=== PATIENT | male | born 1935 | race Caucasian/White ===

== ENCOUNTER 2023-06-06 19:54 | Inpatient (IN) | payer OTHER ==
[2023-06-06 21:25] LABS: BASO % 0.5 % (0-2.0); EOS % 0.2 % (0-4.5); HEMATOCRIT 43.6 % (35.4-49); HEMOGLOBIN 14.7 GM/dL (11.7-16.9); LYMPH % 7.2 % (8-40); MCHC 33.7 g/dl (32.0-35.9); MONO % 8.6 % (3.8-10.2); NEUT % 83.5 % (42.8-82.8); PLATELET COUNT 119 10^3/uL (134-434); RBC 4.74 M/mm3 (4.00-5.60); RDW 14.6 % (11.9-15.9)
[2023-06-06] MEDS ORDERED: guaiFENesin 200 MG/10 ML 10 ML UNIT-DOSE CUPS PO ONE (21:34)
[2023-06-06 21:39] LABS: POTASSIUM 3.9 mmol/L (3.5-5.1)
[2023-06-06] MEDS ORDERED: guaiFENesin 200 MG/10 ML 10 ML UNIT-DOSE CUPS ONE (21:46)
[2023-06-06 21:47] LABS: ALBUMIN 3.7 g/dl (3.4-5.0); BLOOD UREA NITROGEN 18.5 mg/dL (7-18); CALCIUM 9.3 mg/dL (8.5-10.1)
[2023-06-06 21:48] LABS: BILIRUBIN,TOTAL 1.1 mg/dL (0.2-1)
[2023-06-06 21:49] LABS: CREATININE 1.2 mg/dL (0.55-1.3)
[2023-06-06 21:50] LABS: TOT PROT 6.9 g/dl (6.4-8.2)
[2023-06-06] MEDS ORDERED: D5-1/2NS+10 MEQ KCL - 10 MEQ/1,000 ML INFUS.BAG IV SCH (22:00)
[2023-06-06] MEDS: guaiFENesin 600 MG TABLET.ER (FP) PO SCH (22:10)
[2023-06-06] MEDS ORDERED: NITROGLYCERIN SUBLINGUAL 1/150 0.4 MG TAB SL PRN (22:14)
[2023-06-06] MEDS ORDERED: HEPARIN NA (PORCINE) 5,000 UNITS/ML 1ML VIAL SQ SCH (22:15)
[2023-06-06] MEDS ORDERED: RIVAROXABAN 20 MG TABLET PO ONE (22:16)
[2023-06-06] MEDS ORDERED: ALBUTEROL SO4 2.5/IPRATROPIUM 0.5 INH SOL 3 ML VIAL.NEB. NEB ONE (22:58)
[2023-06-06] MEDS ORDERED: OSELTAMIVIR PHOSPHATE 75 MG CAPSULE ONE (22:59)
[2023-06-06] MEDS: ALBUTEROL SO4 2.5/IPRATROPIUM 0.5 INH SOL 3 ML VIAL.NEB. NEB PRN (23:03)
[2023-06-06] MEDS: OSELTAMIVIR PHOSPHATE 75 MG CAPSULE PO SCH (23:03)
[2023-06-06] MEDS ORDERED: ACETAMINOPHEN 325 MG TABLET (FP) ONE (23:28)
[2023-06-06] MEDS: ROSUVASTATIN CA 10 MG TABLET PO SCH (23:38)
[2023-06-06] MEDS: ACETAMINOPHEN 325 MG TABLET (FP) PO PRN (23:39)
[2023-06-07 00:20] LABS: PH,URINE 5.5 (5.0-8.0); URINE APPEARANCE CLEAR; URINE BILIRUBIN NEGATIVE (NEGATIVE); URINE COLOR YELLOW; URINE GLUCOSE (UA) NEGATIVE (NEGATIVE); URINE KETONE TRACE (NEGATIVE); URINE LEUK ESTERASE NEGATIVE (NEGATIVE); URINE NITRITE NEGATIVE (NEGATIVE); URINE PROTEIN TRACE (NEGATIVE)
[2023-06-07] MEDS ORDERED: ALBUTEROL SO4 2.5/IPRATROPIUM 0.5 INH SOL 3 ML VIAL.NEB. NEB ONE (03:48)
[2023-06-07] MEDS: ALBUTEROL SO4 2.5/IPRATROPIUM 0.5 INH SOL 3 ML VIAL.NEB. NEB PRN (03:54)
[2023-06-07] MEDS: D5-1/2NS+10 MEQ KCL - 10 MEQ/1,000 ML INFUS.BAG IV SCH ×2 (06:18→23:59)
[2023-06-07] MEDS ORDERED: MULTIVITAMINS (DAILY MVI) TABLET (FP) ONE (09:08)
[2023-06-07] MEDS: CHOLECALCIFEROL (VIT D3) 5000 UNITS (125 MCG) CAP PO SCH (09:23)
[2023-06-07] MEDS: LISINOPRIL 10 MG TABLET PO SCH (09:23)
[2023-06-07] MEDS: ASCORBIC ACID 500 MG TABLET (FP) PO SCH (09:23)
[2023-06-07] MEDS: ASPIRIN COATED 81 MG TABLET.EC PO SCH (09:23)
[2023-06-07] MEDS: PANTOPRAZOLE 40 MG TABLET PO SCH (09:23)
[2023-06-07] MEDS: OSELTAMIVIR PHOSPHATE 75 MG CAPSULE PO SCH ×2 (09:23→21:59)
[2023-06-07] MEDS: ZINC SULFATE 220 MG CAPSULE (FP) PO SCH (09:23)
[2023-06-07] MEDS: ATENOLOL 50 MG TABLET (FP) PO SCH (09:23)
[2023-06-07] MEDS: MULTIVITAMINS (DAILY MVI) TABLET (FP) PO SCH (09:23)
[2023-06-07] MEDS: guaiFENesin 600 MG TABLET.ER (FP) PO SCH ×2 (09:23→21:59)
[2023-06-07] MEDS: RIVAROXABAN 20 MG TABLET PO SCH (18:28)
[2023-06-07 18:39] LABS: BASO % 0.2 % (0-2.0); EOS % 0.3 % (0-4.5); HEMATOCRIT 42.4 % (35.4-49); LYMPH % 12.1 % (8-40); MCH 31.1 pg (25.7-33.7); MCHC 33.1 g/dl (32.0-35.9); MEAN CELL VOLUME 93.9 fl (80-96); MEAN PLT VOLUME 9.2 fl (7.5-11.1); MONO % 8.9 % (3.8-10.2); NEUT % 78.5 % (42.8-82.8); PLATELET COUNT 102 10^3/uL (134-434); RBC 4.52 M/mm3 (4.00-5.60); WHITE BLOOD COUNT 7.4 K/mm3 (4.0-10.0)
[2023-06-07 18:52] LABS: POTASSIUM 4.4 mmol/L (3.5-5.1)
[2023-06-07 18:55] LABS: CALCIUM 8.5 mg/dL (8.5-10.1)
[2023-06-07 18:56] LABS: BLOOD UREA NITROGEN 14.4 mg/dL (7-18)
[2023-06-07 18:59] LABS: CREATININE 0.9 mg/dL (0.55-1.3)
[2023-06-07] MEDS: ROSUVASTATIN CA 10 MG TABLET PO SCH (21:59)
[2023-06-07] MEDS: ACETAMINOPHEN 325 MG TABLET (FP) PO PRN (23:51)
[2023-06-08 04:34] VITALS: BMI 43.4
[2023-06-08 10:18] LABS: BASO % 0.3 % (0-2.0); EOS % 1.5 % (0-4.5); HEMATOCRIT 43.5 % (35.4-49); HEMOGLOBIN 14.7 GM/dL (11.7-16.9); MCH 31.6 pg (25.7-33.7); MCHC 33.8 g/dl (32.0-35.9); MEAN CELL VOLUME 93.5 fl (80-96); MEAN PLT VOLUME 9.2 fl (7.5-11.1); MONO % 7.3 % (3.8-10.2); NEUT % 76.9 % (42.8-82.8); PLATELET COUNT 92 10^3/uL (134-434); RBC 4.65 M/mm3 (4.00-5.60); WHITE BLOOD COUNT 6.4 K/mm3 (4.0-10.0)
[2023-06-08 10:25] LABS: POTASSIUM 3.9 mmol/L (3.5-5.1)
[2023-06-08 10:31] LABS: CALCIUM 8.9 mg/dL (8.5-10.1)
[2023-06-08 10:35] LABS: CREATININE 0.8 mg/dL (0.55-1.3)
[2023-06-08 11:07] LABS: BLOOD UREA NITROGEN 17.4 mg/dL (7-18)
[2023-06-08] MEDS: D5-1/2NS+10 MEQ KCL - 10 MEQ/1,000 ML INFUS.BAG IV SCH (11:37)
[2023-06-08] MEDS: ATENOLOL 50 MG TABLET (FP) PO SCH (11:39)
[2023-06-08] MEDS: PANTOPRAZOLE 40 MG TABLET PO SCH (11:39)
[2023-06-08] MEDS: MULTIVITAMINS (DAILY MVI) TABLET (FP) PO SCH (11:39)
[2023-06-08] MEDS: LISINOPRIL 10 MG TABLET PO SCH (11:39)
[2023-06-08] MEDS: ZINC SULFATE 220 MG CAPSULE (FP) PO SCH (11:39)
[2023-06-08] MEDS: guaiFENesin 600 MG TABLET.ER (FP) PO SCH ×2 (11:39→21:15)
[2023-06-08] MEDS: OSELTAMIVIR PHOSPHATE 75 MG CAPSULE PO SCH ×2 (11:39→21:15)
[2023-06-08] MEDS: ASPIRIN COATED 81 MG TABLET.EC PO SCH (11:39)
[2023-06-08] MEDS: ASCORBIC ACID 500 MG TABLET (FP) PO SCH (11:40)
[2023-06-08] MEDS: CHOLECALCIFEROL (VIT D3) 5000 UNITS (125 MCG) CAP PO SCH (11:40)
[2023-06-08] MEDS: RIVAROXABAN 20 MG TABLET PO SCH (18:12)
[2023-06-08 20:34] LABS: N-TERMINAL BNP 684.3 pg/ml (5-450)
[2023-06-08] MEDS: ROSUVASTATIN CA 10 MG TABLET PO SCH (21:15)
[2023-06-09 09:45] LABS: BASO % 0.3 % (0-2.0); EOS % 2.1 % (0-4.5); HEMATOCRIT 41.2 % (35.4-49); HEMOGLOBIN 14.3 GM/dL (11.7-16.9); LYMPH % 16.3 % (8-40); MCH 31.7 pg (25.7-33.7); MCHC 34.7 g/dl (32.0-35.9); MEAN CELL VOLUME 91.4 fl (80-96); MEAN PLT VOLUME 9.2 fl (7.5-11.1); MONO % 6.2 % (3.8-10.2); NEUT % 75.1 % (42.8-82.8); PLATELET COUNT 109 10^3/uL (134-434); RBC 4.51 M/mm3 (4.00-5.60); RDW 14.9 % (11.9-15.9); WHITE BLOOD COUNT 5.7 K/mm3 (4.0-10.0)
[2023-06-09 10:07] LABS: CHLORIDE 108 mmol/L (98-107); POTASSIUM 3.9 mmol/L (3.5-5.1); SODIUM 142 mmol/L (136-145)
[2023-06-09] MEDS: PANTOPRAZOLE 40 MG TABLET PO SCH (10:08)
[2023-06-09] MEDS: ZINC SULFATE 220 MG CAPSULE (FP) PO SCH (10:08)
[2023-06-09] MEDS: ATENOLOL 50 MG TABLET (FP) PO SCH (10:08)
[2023-06-09] MEDS: LISINOPRIL 10 MG TABLET PO SCH (10:08)
[2023-06-09] MEDS: guaiFENesin 600 MG TABLET.ER (FP) PO SCH ×2 (10:08→21:48)
[2023-06-09] MEDS: ASPIRIN COATED 81 MG TABLET.EC PO SCH (10:08)
[2023-06-09] MEDS: OSELTAMIVIR PHOSPHATE 75 MG CAPSULE PO SCH ×2 (10:08→21:48)
[2023-06-09 10:09] LABS: CALCIUM 8.8 mg/dL (8.5-10.1)
[2023-06-09] MEDS: MULTIVITAMINS (DAILY MVI) TABLET (FP) PO SCH (10:09)
[2023-06-09] MEDS: CHOLECALCIFEROL (VIT D3) 5000 UNITS (125 MCG) CAP PO SCH (10:09)
[2023-06-09] MEDS: D5-1/2NS+10 MEQ KCL - 10 MEQ/1,000 ML INFUS.BAG IV SCH (10:09)
[2023-06-09] MEDS: ASCORBIC ACID 500 MG TABLET (FP) PO SCH (10:09)
[2023-06-09 10:10] LABS: ANION GAP 7 mmol/L (4-13); BLOOD UREA NITROGEN 19.8 mg/dL (7-18); CO2 27 mmol/L (21-32); GLUCOSE,RANDOM 112 mg/dL (74-106)
[2023-06-09 10:13] LABS: CREATININE 0.8 mg/dL (0.55-1.3)
[2023-06-09] MEDS ORDERED: ALBUTEROL SO4 2.5/IPRATROPIUM 0.5 INH SOL 3 ML VIAL.NEB. NEB ONE (11:45)
[2023-06-09] MEDS ORDERED: guaiFENesin 600 MG TABLET.ER (FP) PO SCH (11:45)
[2023-06-09] MEDS: RIVAROXABAN 20 MG TABLET PO SCH (17:13)
[2023-06-09] MEDS: ROSUVASTATIN CA 10 MG TABLET PO SCH (21:48)
[2023-06-10] MEDS: D5-1/2NS+10 MEQ KCL - 10 MEQ/1,000 ML INFUS.BAG IV SCH ×2 (06:52→23:26)
[2023-06-10] MEDS: ASPIRIN COATED 81 MG TABLET.EC PO SCH (09:53)
[2023-06-10] MEDS: ZINC SULFATE 220 MG CAPSULE (FP) PO SCH (09:53)
[2023-06-10] MEDS: MULTIVITAMINS (DAILY MVI) TABLET (FP) PO SCH (09:53)
[2023-06-10] MEDS: guaiFENesin 600 MG TABLET.ER (FP) PO SCH ×2 (09:54→21:38)
[2023-06-10] MEDS: ACETAMINOPHEN 325 MG TABLET (FP) PO PRN ×2 (09:54→18:21)
[2023-06-10] MEDS: OSELTAMIVIR PHOSPHATE 75 MG CAPSULE PO SCH ×2 (09:54→21:38)
[2023-06-10] MEDS: CHOLECALCIFEROL (VIT D3) 5000 UNITS (125 MCG) CAP PO SCH (09:55)
[2023-06-10] MEDS: LISINOPRIL 10 MG TABLET PO SCH (09:55)
[2023-06-10] MEDS: ASCORBIC ACID 500 MG TABLET (FP) PO SCH (09:55)
[2023-06-10] MEDS: ATENOLOL 50 MG TABLET (FP) PO SCH (09:55)
[2023-06-10] MEDS: PANTOPRAZOLE 40 MG TABLET PO SCH (09:55)
[2023-06-10] MEDS: RIVAROXABAN 20 MG TABLET PO SCH (18:17)
[2023-06-10] MEDS: ALBUTEROL SO4 2.5/IPRATROPIUM 0.5 INH SOL 3 ML VIAL.NEB. NEB PRN (18:41)
[2023-06-10] MEDS: ROSUVASTATIN CA 10 MG TABLET PO SCH (21:38)
[2023-06-11] MEDS: ALBUTEROL SO4 2.5/IPRATROPIUM 0.5 INH SOL 3 ML VIAL.NEB. NEB PRN (07:45)
[2023-06-11] MEDS: CHOLECALCIFEROL (VIT D3) 5000 UNITS (125 MCG) CAP PO SCH (10:18)
[2023-06-11] MEDS: D5-1/2NS+10 MEQ KCL - 10 MEQ/1,000 ML INFUS.BAG IV SCH (10:18)
[2023-06-11] MEDS: ZINC SULFATE 220 MG CAPSULE (FP) PO SCH (10:18)
[2023-06-11] MEDS: ATENOLOL 50 MG TABLET (FP) PO SCH (10:19)
[2023-06-11] MEDS: MULTIVITAMINS (DAILY MVI) TABLET (FP) PO SCH (10:19)
[2023-06-11] MEDS: LISINOPRIL 10 MG TABLET PO SCH (10:19)
[2023-06-11] MEDS: ACETAMINOPHEN 325 MG TABLET (FP) PO PRN (10:19)
[2023-06-11] MEDS: guaiFENesin 600 MG TABLET.ER (FP) PO SCH ×2 (10:19→21:26)
[2023-06-11] MEDS: OSELTAMIVIR PHOSPHATE 75 MG CAPSULE PO SCH ×2 (10:19→21:26)
[2023-06-11] MEDS: ASCORBIC ACID 500 MG TABLET (FP) PO SCH (10:19)
[2023-06-11] MEDS: PANTOPRAZOLE 40 MG TABLET PO SCH (10:20)
[2023-06-11] MEDS: ASPIRIN COATED 81 MG TABLET.EC PO SCH (10:20)
[2023-06-11] MEDS: RIVAROXABAN 20 MG TABLET PO SCH (17:22)
[2023-06-11] MEDS: ROSUVASTATIN CA 10 MG TABLET PO SCH (21:26)
[2023-06-12] MEDS: OSELTAMIVIR PHOSPHATE 75 MG CAPSULE PO SCH ×2 (12:05→21:40)
[2023-06-12] MEDS: ASPIRIN COATED 81 MG TABLET.EC PO SCH (12:05)
[2023-06-12] MEDS: ATENOLOL 50 MG TABLET (FP) PO SCH (12:05)
[2023-06-12] MEDS: PANTOPRAZOLE 40 MG TABLET PO SCH (12:05)
[2023-06-12] MEDS: guaiFENesin 600 MG TABLET.ER (FP) PO SCH ×2 (12:05→21:40)
[2023-06-12] MEDS: LISINOPRIL 10 MG TABLET PO SCH (12:06)
[2023-06-12] MEDS: RIVAROXABAN 20 MG TABLET PO SCH (18:38)
[2023-06-12] MEDS: ROSUVASTATIN CA 10 MG TABLET PO SCH (21:40)
[2023-06-13] MEDS: guaiFENesin 600 MG TABLET.ER (FP) PO SCH ×2 (09:56→21:59)
[2023-06-13] MEDS: ASPIRIN COATED 81 MG TABLET.EC PO SCH (09:57)
[2023-06-13] MEDS: PANTOPRAZOLE 40 MG TABLET PO SCH (09:57)
[2023-06-13] MEDS: ATENOLOL 50 MG TABLET (FP) PO SCH (09:57)
[2023-06-13] MEDS: LISINOPRIL 10 MG TABLET PO SCH (09:57)
[2023-06-13] MEDS: RIVAROXABAN 20 MG TABLET PO SCH (18:12)
[2023-06-13] MEDS: ROSUVASTATIN CA 10 MG TABLET PO SCH (21:59)
[2023-06-14 08:59] LABS: BASO % 0.4 % (0-2.0); EOS % 1.3 % (0-4.5); HEMATOCRIT 38.7 % (35.4-49); HEMOGLOBIN 13.2 GM/dL (11.7-16.9); MCH 31.2 pg (25.7-33.7); MCHC 34.3 g/dl (32.0-35.9); MEAN CELL VOLUME 90.9 fl (80-96); MEAN PLT VOLUME 9.7 fl (7.5-11.1); MONO % 8.7 % (3.8-10.2); NEUT % 75.6 % (42.8-82.8); PLATELET COUNT 153 10^3/uL (134-434); RBC 4.25 M/mm3 (4.00-5.60); RDW 14.5 % (11.9-15.9); WHITE BLOOD COUNT 6.5 K/mm3 (4.0-10.0)
[2023-06-14 09:43] LABS: BLOOD UREA NITROGEN 15.4 mg/dL (7-18)
[2023-06-14 09:46] LABS: CREATININE 0.9 mg/dL (0.55-1.3)
[2023-06-14] MEDS: ATENOLOL 50 MG TABLET (FP) PO SCH (10:22)
[2023-06-14] MEDS: guaiFENesin 600 MG TABLET.ER (FP) PO SCH ×2 (10:22→21:39)
[2023-06-14] MEDS: LISINOPRIL 10 MG TABLET PO SCH (10:22)
[2023-06-14] MEDS: PANTOPRAZOLE 40 MG TABLET PO SCH (10:22)
[2023-06-14] MEDS: ASPIRIN COATED 81 MG TABLET.EC PO SCH (10:22)
[2023-06-14] MEDS: RIVAROXABAN 20 MG TABLET PO SCH (18:11)
[2023-06-14] MEDS: ROSUVASTATIN CA 10 MG TABLET PO SCH (21:39)
[2023-06-15] MEDS: ASPIRIN COATED 81 MG TABLET.EC PO SCH (10:07)
[2023-06-15] MEDS: guaiFENesin 600 MG TABLET.ER (FP) PO SCH ×2 (10:07→21:30)
[2023-06-15] MEDS: ACETAMINOPHEN 325 MG TABLET (FP) PO PRN (10:07)
[2023-06-15] MEDS: LISINOPRIL 10 MG TABLET PO SCH (10:07)
[2023-06-15] MEDS: ATENOLOL 50 MG TABLET (FP) PO SCH (10:07)
[2023-06-15] MEDS: PANTOPRAZOLE 40 MG TABLET PO SCH (10:07)
[2023-06-15] MEDS ORDERED: ALBUTEROL SO4 2.5/IPRATROPIUM 0.5 INH SOL 3 ML VIAL.NEB. NEB ONE (16:08)
[2023-06-15] MEDS: RIVAROXABAN 20 MG TABLET PO SCH (17:24)
[2023-06-15] MEDS: ROSUVASTATIN CA 10 MG TABLET PO SCH (21:30)
[2023-06-15 22:32] VITALS: TEMP 97.9
[2023-06-16] MEDS: PANTOPRAZOLE 40 MG TABLET PO SCH (10:03)
[2023-06-16] MEDS: ASPIRIN COATED 81 MG TABLET.EC PO SCH (10:03)
[2023-06-16] MEDS: guaiFENesin 600 MG TABLET.ER (FP) PO SCH (10:03)
[2023-06-16] MEDS: LISINOPRIL 10 MG TABLET PO SCH (10:03)
[2023-06-16] MEDS: ATENOLOL 50 MG TABLET (FP) PO SCH (10:03)
[2023-06-16 14:00] VITALS: BP 100/59; PULSE 95; RESP 19
== END 2023-06-16 15:00 | DRG 194 ==
LOC: JER 19:54 → JERBED 22:18 → OBSVTOIN 06-07 10:43 → J6S 06-07 23:47
PROVIDERS: ADMIT Internal Medicine; ATTEND Internal Medicine
DX: J10.1 Influenza due to other identified influenza virus with other respiratory manifestations (principal); I48.20 Chronic atrial fibrillation, unspecified; R26.2 Difficulty in walking, not elsewhere classified; I10 Essential (primary) hypertension; M62.81 Muscle weakness (generalized); I48.91 Unspecified atrial fibrillation; D69.6 Thrombocytopenia, unspecified; E78.5 Hyperlipidemia, unspecified; I25.10 Atherosclerotic heart disease of native coronary artery without angina pectoris; J44.9 Chronic obstructive pulmonary disease, unspecified; E86.0 Dehydration; M06.09 Rheumatoid arthritis without rheumatoid factor, multiple sites; R32 Unspecified urinary incontinence; N40.0 Benign prostatic hyperplasia without lower urinary tract symptoms; Z95.5 Presence of coronary angioplasty implant and graft
CPT/HCPCS: 0241U-QW; 36415; 71045-TC-FY; 80048; 80053; 80061; 81003; 82550; 83036; 83880; 84443; 84484; 85025; 85651; 86140; 86850; 86900; 86901; 87086; 93005; 93010; 93306-TC; 94640; 97116-GP; 97162-GP; 99285-25; G0378